=== PATIENT | male | born 1950 | race Caucasian/White ===

== ENCOUNTER → 2017-01-02 | Outpatient (CLI) | payer MEDICARE, OTHER ==
--- NOTE | 2017-01-02 11:08 | RADIOLOGY REPORT (SQ) ---
EXAM DESCRIPTION: CAROTID DOPPLER COMPLETED DATE/TIME: 01/02/2017 10:58 am REASON FOR STUDY: STENOSIS I65.29 OCCLUSION AND STENOSIS OF UNSPECIFIED CAROTID ARTERY COMPARISON: 06/14/2015 TECHNIQUE: Grayscale ultrasound, Doppler velocity and spectra, and color Doppler images acquired of the extra-cranial carotid and vertebral arteries. Images stored on PACS. LIMITATIONS: None. FINDINGS: RIGHT CAROTID CCA Velocities: Within normal limits. ICA Velocities Peak systolic 0.87 m/s. End diastolic 0.32 m/s. Proximal ICA/CCA peak systolic ratio 1.1. Heterogeneity Atherosclerotic plaque noted in the common carotid, bulb, and proximal ICA. Triphasic waveforms noted. LEFT CAROTID CCA Velocities: Within normal limits. ICA Velocities Peak systolic 1.38 m/s. End diastolic 0.5 m/s. Proximal ICA/CCA peak systolic ratio 1.9. Triphasic waveforms. There is VERTEBRAL ARTERIES: Antegrade flow. Normal waveforms. SUBCLAVIAN ARTERIES: No finding. OTHER: No other significant finding. Heterogeneous atherosclerotic plaque noted throughout the commo n carotid, carotid bulb, and ICA. IMPRESSION: 1. No hemodynamically significant stenosis by velocity criteria in the right internal c arotid artery. 2. 50 to 69% stenosis of the left internal carotid artery by velocity criteria. This is new in comp carminason to the prior study. COMMENT: Quality ID #[id number]: Velocity criteria are extrapolated from the diameter data as defined by t he Society of Radiologists in Ultrasound Consensus Conference. Radiology 2003: 229; 340-346. TECHNICAL DOCUMENTATION: JOB ID: [id number] [employer]- All Rights Reserved
== END ==
LOC: SP 09:43
PROVIDERS: ATTEND Surgery
DX: I65.29 Occlusion and stenosis of unspecified carotid artery (principal)
CPT/HCPCS: 93880

== ENCOUNTER → 2018-01-08 | Outpatient (CLI) | payer MEDICARE, OTHER ==
--- NOTE | 2018-01-08 11:43 | RADIOLOGY REPORT (SQ) ---
EXAM DESCRIPTION: CAROTID DOPPLER COMPLETED DATE/TIME: 01/08/2018 11:27 am REASON FOR STUDY: STENOSIS I65.29 OCCLUSION AND STENOSIS OF UNSPECIFIED CAROTID ARTERY COMPARISON: Carotid Doppler exams 06/16/2014, 07/14/2015, 01/02/2017 TECHNIQUE: Grayscale ultrasound, Doppler velocity and spectra, and color Doppler images acquired of the extra-cranial carotid and vertebral arteries. Images stored on PACS. LIMITATIONS: None. FINDINGS: RIGHT CAROTID CCA Velocities: Within normal limits. ICA Velocities Peak systolic 0.76 m/s. End diastolic 0.21 m/s. Proximal ICA/CCA peak systolic ratio 0.9. Spectra normal. Minimal shadowing plaque at the right carotid bifurcation. Just distal to the plaqu e, velocities suggest against any flow significant right ICA stenosis. LEFT CAROTID CCA Velocities: Within normal limits. Diffuse distal common carotid intimal thickening, intimal calc ification and plaque is present extending into the left carotid bifurcation. This is similar compare d to previous exams. ICA Velocities Peak systolic 1.7 m/s. End diastolic 0.5 m/s. Proximal ICA/CCA peak systolic ratio 2.5. There is intimal thickening and calcific plaque in the distal left common carotid artery extending in to the carotid bifurcation and proximal ICA. The proximal left ICA 2 cm is obscured by shadowing emily que. Immediately distal to the shadowing plaque, velocities demonstrate 50 to 69% stenosis. This is similar compared to prior exam. VERTEBRAL ARTERIES: Antegrade flow. Normal waveforms. SUBCLAVIAN ARTERIES: Not examined OTHER: No other significant finding. IMPRESSION: No flow significant stenosis of the right proximal ICA/right carotid bifurcation. Heavy atherosclerotic calcific plaque at the left carotid bifurcation with 50 to 69% stenosis by [facility] criteria. This is similar compared to prior exam. COMMENT: Quality ID #195: Velocity criteria are extrapolated from the diameter data as defined by t he Society of Radiologists in Ultrasound Consensus Conference. Radiology 2003: 229; 340-346. TECHNICAL DOCUMENTATION: JOB ID: [id number] [employer]- All Rights Reserved Reading location - IP/workstation name: [facility]
== END ==
LOC: SP 09:48
PROVIDERS: ATTEND Surgery
DX: I65.29 Occlusion and stenosis of unspecified carotid artery (principal); I25.10 Atherosclerotic heart disease of native coronary artery without angina pectoris; I35.0 Nonrheumatic aortic (valve) stenosis
CPT/HCPCS: 93880

== ENCOUNTER → 2019-01-05 | Outpatient (CLI) | payer MEDICARE, OTHER ==
--- NOTE | 2019-01-05 12:10 | RADIOLOGY REPORT (SQ) ---
EXAM DESCRIPTION: CAROTID DOPPLER COMPLETED DATE/TIME: 01/05/2019 11:56 am REASON FOR STUDY: CAROTID STENOSIS I65.29 OCCLUSION AND STENOSIS OF UNSPECIFIED CAROTID ARTERY COMPARISON: Carotid Doppler 01/08/2018, 01/02/2017, 06/14/2015, 06/16/2014 TECHNIQUE: Grayscale ultrasound, Doppler velocity and spectra, and color Doppler images acquired of the extra-cranial carotid and vertebral arteries. Images stored on PACS. LIMITATIONS: None. FINDINGS: RIGHT CAROTID CCA Velocities: Within normal limits. Right common carotid artery peak systolic velocity 0.68 m/sec. ICA Velocities Peak systolic 0.65 m/s. End diastolic 0.22 m/s. Proximal ICA/CCA peak systolic ratio 1.2. Spectra normal. No significant plaque. LEFT CAROTID CCA Velocities: Within normal limits. Left common carotid artery peak systolic velocity 0.89 m/sec ICA Velocities Peak systolic 0.8 m/s. End diastolic 0.3 m/s. Proximal ICA/CCA peak systolic ratio 1.3. Spectra normal. Mixed calcific and noncalcific plaque. Distal to shadowing calcific plaque, velocit ies suggest no flow significant stenosis. VERTEBRAL ARTERIES: Antegrade flow. Normal waveforms. SUBCLAVIAN ARTERIES: Not evaluated OTHER: No other significant finding. IMPRESSION: NO HEMODYNAMICALLY SIGNIFICANT STENOSIS. COMMENT: Quality ID #195: Velocity criteria are extrapolated from the diameter data as defined by t he Society of Radiologists in Ultrasound Consensus Conference. Radiology 2003: 229; 340-346. TECHNICAL DOCUMENTATION: JOB ID: [id number] [employer]- All Rights Reserved Reading location - IP/workstation name: [email or web address]
== END ==
LOC: SP 08:59
PROVIDERS: ATTEND Surgery
DX: I65.29 Occlusion and stenosis of unspecified carotid artery (principal)
CPT/HCPCS: 93880